=== PATIENT | male | born 1965 | race Caucasian/White ===

== ENCOUNTER → 2016-09-10 | Outpatient (CLI) | payer BC ==
[~2016-09-10] VITALS: Ht 175.3 cm; Wt 92.0 kg
[2016-09-10 15:30] VITALS: BP 119/73; PULSE 92; Ht 175.3 cm; Wt 92.0 kg
== END | disposition home or self-care (01) ==
LOC: C.NEUR 14:25
PROVIDERS: ATTEND Internal Medicine Pulmonary Disease
DX: G47.33 Obstructive sleep apnea (adult) (pediatric) (principal)

== ENCOUNTER → 2017-08-26 | Outpatient (CLI) | payer OTHER ==
[~2017-08-26] VITALS: Ht 175.3 cm; Wt 94.3 kg
[2017-08-26 16:31] VITALS: BP 118/76; PULSE 91; Ht 175.3 cm; Wt 94.3 kg
== END | disposition home or self-care (01) ==
LOC: C.NEUR 14:16
PROVIDERS: ATTEND Internal Medicine Pulmonary Disease
DX: G47.33 Obstructive sleep apnea (adult) (pediatric) (principal); I10 Essential (primary) hypertension; L40.9 Psoriasis, unspecified